=== PATIENT | male | born 1990 | race African-American/Black ===

== ENCOUNTER 2019-02-01 13:05 | Emergency (ER) | payer MEDICAID, OTHER ==
[~2019-02-01] VITALS: Ht 177.8 cm; Wt 76.7 kg
[2019-02-01 13:14] VITALS: BP 123/76
--- NOTE | 2019-02-01 14:43 | NUR ---
PT TO ER BED 1
--- NOTE | 2019-02-01 14:53 | NUR ---
CHAPPERONED PA AT BESIDE THIS TIME
--- NOTE | 2019-02-01 16:35 | NUR ---
Patient discharged with v/s stable. Written and verbal after care instructions given and explained. Patient alert, oriented and verbalized understanding of instructions. Ambulatory with steady gait. All questions addressed prior to discharge. ID band removed. Patient advised to follow up with PMD. Rx of FLONASE, ANUSOL, LORATADINE, AUGMENTIN given. Patient educated on indication of medication including possible reaction and side effects. Opportunity to ask questions provided and answered.
[2019-02-01 16:36] VITALS: BP 127/61
== END 2019-02-01 16:35 | disposition home or self-care (01) ==
LOC: MED 13:05
DX: K64.4 Residual hemorrhoidal skin tags (principal); J34.89 Other specified disorders of nose and nasal sinuses
CPT/HCPCS: 99283

== ENCOUNTER 2019-07-31 15:04 | Emergency (ER) | payer OTHER ==
[~2019-07-31] VITALS: Ht 176.5 cm; Wt 73.5 kg
[2019-07-31 15:11] VITALS: BP 120/73
[2019-07-31] MEDS ORDERED: PHENYLEPHRINE 0.5% 15 ML BTL NS ONE (16:35)
[2019-07-31] MEDS ORDERED: predniSONE 20 MG TAB PO ONE (16:35)
[2019-07-31 16:55] VITALS: BP 122/73
== END 2019-07-31 16:53 | disposition home or self-care (01) ==
LOC: MED 15:04
DX: J32.0 Chronic maxillary sinusitis (principal)
CPT/HCPCS: 99283; J7512

== ENCOUNTER 2019-12-22 11:28 | Emergency (ER) | payer OTHER ==
[~2019-12-22] VITALS: Ht 177.8 cm; Wt 78.5 kg
[2019-12-22 11:32] VITALS: BP 122/77
--- NOTE | 2019-12-22 11:38 | NUR ---
PT TO [facility], VS STABLE
--- NOTE | 2019-12-22 11:58 | NUR ---
AMBULATED TO BED 2
--- NOTE | 2019-12-22 12:07 | NUR ---
29/M WITH HX OF HEMORRHOIDS C/O RECTAL BLEEDING WITH BOWEL MOVEMENT, LAST BM TODAY NORMAL NOT HARD TO PASS. STATES BLEEDING PROGRESSIVELY WORSE OVER LAST 2 DAYS. TOILET BOWL WOULD BE RED WITH BLOOD AND STATES BLOOD RUNNING DOWN HIS LEGS AFTER BM. STATES MILD GENERALIZED MID ABD PAIN WITHOUT N/V. DENIES DIZZINESS. WAS SEEN A COUPLE MONTHS AGO FOR S/S DIAGNOSED WITH HEMORRIOD PMH- DENIES
--- NOTE | 2019-12-22 13:59 | NUR ---
TO CT SCAN VIA W/C
--- NOTE | 2019-12-22 14:08 | NUR ---
PT BACK FROM CT VIA W/C
--- NOTE | 2019-12-22 14:46 | NUR ---
DR MONTANEZ SPEAKING WITH PT AT BEDSIDE
--- NOTE | 2019-12-22 14:54 | NUR ---
Patient discharged with v/s stable. Written and verbal after care instructions given and explained. Patient alert, oriented and verbalized understanding of instructions. Ambulatory with steady gait. All questions addressed prior to discharge. ID band removed. Patient advised to follow up with PMD. GIVEN INFO FOR OUTPATIENT CLINIC. Rx of HYDROCORTISONE RECTAL ENEMA SUSPENSION given. Patient educated on indication of medication including possible reaction and side effects. Opportunity to ask questions provided and answered.
[2019-12-22 14:55] VITALS: BP 115/63
== END 2019-12-22 14:54 | disposition home or self-care (01) ==
LOC: MED 11:28
DX: K64.9 Unspecified hemorrhoids (principal)
CPT/HCPCS: 99284